=== PATIENT | male | born 1975 | race Caucasian/White ===

== ENCOUNTER 2018-05-19 11:35 | Emergency (ER) | payer SELFPAY ==
[~2018-05-19] VITALS: Ht 182.9 cm; Wt 107.2 kg
[2018-05-19] MEDS ORDERED: GABAPENTIN600 MG PO (13:37)
[2018-05-19] MEDS ORDERED: KEFLEX500 MG PO (13:37)
[2018-05-19] MEDS ORDERED: BACTRIM,SEPT1 TABLET PO (13:37)
[2018-05-19 14:06] VITALS: BP 124/86
== END 2018-05-19 14:12 | disposition home or self-care (01) ==
LOC: EME 11:35
PROC: 0H9NXZZ Drainage of Left Foot Skin, External Approach (ICD-10-PCS; principal; 2018-05-19)
DX: L03.116 Cellulitis of left lower limb (principal); Z48.89 Encounter for other specified surgical aftercare; Z98.890 Other specified postprocedural states; F17.210 Nicotine dependence, cigarettes, uncomplicated
CPT/HCPCS: 99281; 99284; J1885